=== PATIENT | female | born 1955 | race Two or more races ===

== ENCOUNTER 2021-11-14 07:25 | Day surgery (SDC) | payer OTHER ==
[~2021-11-14] VITALS: Ht 154.9 cm; Wt 59.0 kg
[~2021-11-14 07:25] MED LIST: SYNTH PO
[2021-11-14] MEDS ORDERED: COLACE100 MG PO (09:43)
[2021-11-14] MEDS ORDERED: ULTRACET PO (09:43)
== END 2021-11-14 15:50 | disposition home or self-care (01) ==
LOC: CIR.AMB 07:25
PROVIDERS: ATTEND Surgery
DX: K62.82 Dysplasia of anus (principal); Z20.822 Contact with and (suspected) exposure to COVID-19; E78.5 Hyperlipidemia, unspecified; Z86.16 Personal history of COVID-19; E21.2 Other hyperparathyroidism; K64.4 Residual hemorrhoidal skin tags

== ENCOUNTER 2024-11-17 05:23 | Day surgery (SDC) | payer OTHER ==
[~2024-11-17 05:23] MED LIST changes: +COLACE100 MG PO; +LIPOFEN50 MG PO; +RALOXIFENE HCL60 MG PO; +ROSUVASTATIN-E1 EAC1 PO; +SYNTHROID88 MCG PO; +ULTRACET PO; +[UNRECOGNIZED DRUG - OTHER]
[2024-11-17] MEDS ORDERED: HEMOSTATIC MATRIX 1 KIT KIT TOP ONE ×2 (07:02→07:45)
[2024-11-17] MEDS ORDERED: DIBUCAINE 30 GM TUBE ONE (07:02)
[2024-11-17] MEDS ORDERED: BUPIVACAINE HCL/MPF 0.5% 30ML VIAL ONE (07:03)
[2024-11-17] MEDS ORDERED: LIDOCAINE HCL 1%/EPINEPHRINE 20ML VIAL IJ ONE ×2 (07:03→07:45)
[2024-11-17] MEDS ORDERED: METRONIDAZOLE/SODIUM CHLORIDE 500 MG/100 ML PIGGYBACK IV ONE ×2 (07:03→07:45)
[2024-11-17] MEDS ORDERED: CEFTRIAXONE SODIUM 2,000 MG VIAL ONE (07:03)
[2024-11-17] MEDS ORDERED: POVIDONE-IODINE 118 ML BOTT TOP ONE (07:03)
[2024-11-17] MEDS ORDERED: BUPIVACAINE HCL 30 ML VIAL IJ ONE (07:45)
[2024-11-17] MEDS ORDERED: DIBUCAINE 30 GM TUBE RECTAL ONE (07:45)
[2024-11-17] MEDS ORDERED: CEFTRIAXONE SODIUM 2,000 MG VIAL IV ONE (07:45)
[2024-11-17] MEDS ORDERED: COLACE100 MG PO (08:56)
[2024-11-17] MEDS ORDERED: TRAM1TAB98 PO (08:56)
[2024-11-17] MEDS ORDERED: ONDANSETRON HCL 2 MG/ML VIAL ONE (09:04)
[2024-11-17] MEDS ORDERED: ONDANSETRON HCL 2 MG/ML VIAL IV ONE (09:10)
== END 2024-11-17 13:25 | disposition home or self-care (01) ==
LOC: CIR.AMB 05:23
PROVIDERS: ATTEND Surgery
DX: D01.3 Carcinoma in situ of anus and anal canal (principal); K62.89 Other specified diseases of anus and rectum

== ENCOUNTER 2025-01-19 09:00 | Day surgery (SDC) | payer OTHER ==
[2025-01-15 11:52] VITALS: BP 123/79
[~2025-01-19] VITALS: Ht 154.9 cm; Wt 60.3 kg
[~2025-01-19 09:00] MED LIST changes: +TRAM1TAB98 PO
[2025-01-19] MEDS ORDERED: CEFAZOLIN SODIUM 1,000 MG VIAL ONE (09:45)
[2025-01-19] MEDS ORDERED: CHLORHEXIDINE GLUCONATE 120 ML BOTTLE TOP ONE ×2 (10:32→11:27)
[2025-01-19] MEDS ORDERED: BUPIVACAINE HCL/MPF 0.5% 30ML VIAL ONE (11:08)
[2025-01-19] MEDS ORDERED: LIDOCAINE HCL 1%/EPINEPHRINE 20ML VIAL IJ ONE (11:08)
[2025-01-19] MEDS ORDERED: HEPARIN SODIUM,PORCINE/PF 100 UNIT/ML SYRINGE IV ONE (11:10)
[2025-01-19] MEDS ORDERED: POVIDONE-IODINE 118 ML BOTT TOP ONE (11:25)
[2025-01-19] MEDS ORDERED: TRAM1TAB98 PO (11:36)
== END 2025-01-19 14:45 | disposition home or self-care (01) ==
LOC: CIR.AMB 09:00
PROVIDERS: ATTEND Surgery
DX: C21.1 Malignant neoplasm of anal canal (principal); D01.3 Carcinoma in situ of anus and anal canal
CPT/HCPCS: 36561; C1751